=== PATIENT | male | born 1980 | race Two or more races ===

== ENCOUNTER 2017-03-30 09:53 | Emergency (ER) | payer OTHER ==
[~2017-03-30] VITALS: Ht 185.4 cm; Wt 131.5 kg
[~2017-03-30 09:53] MED LIST: VICODIN 5-5001 EACH PO
[2017-03-30] MEDS ORDERED: IBUPROFEN600 MG ORAL (10:25)
[2017-03-30] MEDS ORDERED: NORCO 5-325 TA1 EACH ORAL (10:25)
[2017-03-30 10:36] VITALS: BP 149/88
--- NOTE | 2017-03-31 14:19 | Emergency Room Report ---
History of Present Illness General Chief Complaint: Lower Extremity Injury Source: Patient Present Illness HPI 37-year-old male presents ED for evaluation. Patient presenting with right calf pain. Started yesterday while he was playing soccer. States as he was running he felt ankle pop" in his right calf. States he's had persistent pain and swelling since. Throbbing, 10 out of 10, nonradiating. Denies chest pain or shortness of breath. No other aggravating relieving factors. Denies any other associated symptoms Allergies: Coded Allergies: No Known Allergies (Unverified , 01/05/12) Patient History Past Medical History: none Past Surgical History: none Pertinent Family History: none Social History: Denies: smoking, alcohol use, drug use Immunizations: UTD Reviewed Nursing Documentation: PMH: Agreed, PSxH: Agreed Nursing Documentation-PMH Past Medical History: No Stated History Hx Cardiac Problems: No Hx Hypertension: No Hx Pacemaker: No Hx Asthma: No Hx COPD: No Hx Diabetes: No Hx Cancer: No Hx Dialysis: No History Of Psychiatric Problem: No Hx Neurological Problems: No Hx Cerebrovascular Accident: No Hx Seizures: No Review of Systems All Other Systems: negative except mentioned in HPI Physical Exam Vital Signs Date Time Temp Pulse Resp B/P (MAP) Pulse Ox O2 Delivery O2 Flow Rate FiO2 03/30/17 10:01 98.1 98 18 141/84 96 Room Air Sp02 EP Interpretation: reviewed, normal General Appearance: no apparent distress, alert, GCS 15, non-toxic, obese Head: normocephalic Eyes: bilateral eye normal inspection, bilateral eye PERRL ENT: normal ENT inspection Neck: normal inspection Respiratory: normal inspection Cardiovascular #1: normal inspection Gastrointestinal: normal inspection Rectal: deferred Genitourinary: no CVA tenderness Musculoskeletal: calf tenderness, swelling - R calf, other - negative thompsons test R calf Neurologic: alert, oriented x3, responsive, motor strength/tone normal, sensory intact, speech normal Psychiatric: normal inspection Skin: normal inspection Lymphatic: normal inspection Medical Decision Making Diagnostic Impression: Primary Impression: Strain of calf muscle Qualified Codes: S86.811A - Strain of other muscle(s) and tendon(s) at lower leg level, right leg, initial encounter ER Course Hospital Course 37-year-old male presents ED complaining of right calf pain and swelling after playing soccer Differential diagnoses include: Fracture, dislocation, sprain, contusion, bursitis Clinical course Patient placed on stretcher. After initial history, physical exam reveals an obese male in no acute distress. There is significant swelling and tenderness to the right calf compared to the left calf. No induration worse erythema. Tonsils test negative. Therefore no injury to the Achilles Patient either strained his calf muscle or tore his calf muscle. No bony injury indicating. No indication for x-rays at this time. Given presentation I am not concerned for DVT Diagnosis -strain of calf muscle stable and discharged to home with prescription for [employer] weight bear as tolerated. Followup with ortho. Return to ED if symptoms recur or worsen Last Vital Signs Date Time Temp Pulse Resp B/P (MAP) Pulse Ox O2 Delivery O2 Flow Rate FiO2 03/30/17 10:36 85 18 149/88 99 Room Air 03/30/17 10:01 98.1 Status: improved Disposition: HOME, SELF-CARE Condition: Stable Scripts Hydrocodone Bit/Acetaminophen 5-325* (NORCO 5-325*) 1 Each Tablet 1 TAB ORAL Q6H Y for For Pain, #10 TAB 0 Refills Prov: JOHANNY VILLALTA M.D. 03/30/17 Ibuprofen* (MOTRIN*) 600 Mg Tablet 600 MG ORAL Q8H Y for For Pain, #30 TAB 0 Refills Prov: JOHANNY VILLALTA M.D. 03/30/17 Referrals: RAFAEL WALTER M.D. (PCP) Departure Forms: Return to Work Return to Work Date: Apr 01, 2017 Work Restrictions: No Prolonged Standing Patient Instructions: Medial Head Gastrocnemius Tear With [facility] JOHANNY VILLALTA M.D. Mar 31, 2017 14:19
== END 2017-03-30 10:36 | disposition home or self-care (01) ==
LOC: EMR 10:35
DX: S86.111A Strain of other muscle(s) and tendon(s) of posterior muscle group at lower leg level, right leg, initial encounter (principal); Y93.02 Activity, running; Y93.66 Activity, soccer; Y92.9 Unspecified place or not applicable
CPT/HCPCS: 99283